=== PATIENT | male | born 1990 | race Two or more races ===

== ENCOUNTER 2018-12-16 18:09 | Emergency (ER) ==
[~2018-12-16] VITALS: Ht 165.1 cm; Wt 72.6 kg
--- NOTE | 2018-12-16 18:30 | NUR ---
patient came in the ER c/o flank pain, on room air, breathing evenly and unlabored. Connected to the monitor and pulse ox. kept comfortable, will continue to monitor accordingly.
--- NOTE | 2018-12-16 18:40 | NUR ---
urine collected and sent to lab
[2018-12-16] MEDS ORDERED: ONDANSETRON HCL/PF 4 MG/2 ML VIAL ONE (18:41)
[2018-12-16] MEDS ORDERED: MORPHINE SULFATE INJ 4 MG/ML DISP.SYRIN ONE (18:42)
[2018-12-16 18:43] LABS: BASOPHILS # (AUTO) 0.1 /CMM (0.0-0.2); BASOPHILS % (AUTO) 0.7 % (0.0-2.0); EOSINOPHILS % (AUTO) 0.8 % (0.0-6.0); HEMATOCRIT 46 % (39-51); HEMOGLOBIN 15.9 g/dL (13.5-17.5); LYMPHOCYTES # (AUTO) 3.2 /CMM (0.8-4.8); LYMPHOCYTES % (AUTO) 30.7 % (20.0-44.0); MEAN CORPUSCULAR HGB CONC 35 g/dl (31.0-36.0); MEAN CORPUSCULAR VOLUME 89 fL (80-96); MONOCYTES # (AUTO) 0.8 /CMM (0.1-1.30); MONOCYTES % (AUTO) 7.8 % (2.0-12.0); NEUTROPHILS # (AUTO) 6.3 /CMM (1.8-8.9); PLATELET COUNT (AUTO) 284 /CMM (150-450); RED BLOOD CELL COUNT(AUTO) 5.19 MIL/uL (4.5-6.0); WHITE BLOOD COUNT (AUTO) 10.6 K/uL (4.3-11.0)
[2018-12-16 18:45] LABS: APPEARANCE,URINE Clear (CLEAR); BILIRUBIN,URINE Negative (NEGATIVE); BLOOD, URINE Trace-intact Ery/uL (NEGATIVE); COLOR,URINE Yellow (YELLOW); KETONES,URINE Negative (NEGATIVE); LEUKOCYTE ESTERASE ,URINE Trace (NEGATIVE); NITRITE, URINE Negative (NEGATIVE); PH,URINE 7.5 (5.0-8.0); PROTEIN,URINE Negative (NEGATIVE); UGLUCOSE Negative (NEGATIVE); UROBILINOGEN,URINE 0.2 EU/dL (0.2)
[2018-12-16 18:52] LABS: BACTERIA,URINE None seen /HPF (None Seen); RBC,URINE 0-2 /HPF (0-2); SQUAMOUS EPITHELIAL CELL,UR None Seen /HPF (None Seen); WBC,URINE NONE SEEN /HPF (0-3)
[2018-12-16 18:56] LABS: ALBUMIN 3.7 g/dL (3.4-5.0); BILIRUBIN,TOTAL 0.4 mg/dL (0.2-1.0); CALCIUM, SERUM 8.8 mg/dL (8.5-10.1); TOTAL PROTEIN, SERUM 7.1 g/dL (6.4-8.2)
[2018-12-16 18:57] LABS: POTASSIUM 2.5 mmol/L (3.5-5.1)
[2018-12-16] MEDS ORDERED: MORPHINE SULFATE INJ 2 MG/ML DISP.SYRIN IV ONE (19:00)
[2018-12-16] MEDS ORDERED: IV NS 0.9% 1,000 ML BAG IV ONE (19:00)
[2018-12-16] MEDS ORDERED: ONDANSETRON HCL/PF 4 MG/2 ML VIAL IVP ONE (19:00)
--- NOTE | 2018-12-16 19:15 | NUR ---
endorsed to Annie NASH for azam.
[2018-12-16] MEDS ORDERED: POTASSIUM CHLORIDE 20 MEQ TAB.PRT.SR PO ONE ×4 (19:30→20:19)
[2018-12-16] MEDS ORDERED: Magnesium 1GM/D5W 100ML PREMIX 200 ML IV ONE (20:18)
[2018-12-16] MEDS ORDERED: Magnesium 1 GM/2 ML VIAL IV ONE (20:30)
--- NOTE | 2018-12-16 21:15 | NUR ---
Patient discharged to home in stable condition. Written and verbal after care instructions given. Patient verbalizes understanding of instruction. IV removed. Catheter intact and site benign. Pressure and 4x4 applied to site. No bleeding noted. Pt ambulatory with a steady gait
[2018-12-16 21:16] VITALS: BP 127/88
== END 2018-12-16 21:17 | disposition home or self-care (01) ==
LOC: EDBD 18:16 → ER 18:16
DX: R10.9 Unspecified abdominal pain (principal); Z87.442 Personal history of urinary calculi
CPT/HCPCS: 36415; 74176; 80048; 80076; 81001; 83690; 83735; 85025; 87086; 93005; 96365; 96366; 96375; 99284; J2270; J2405; J3475; J7030; 81000-TC

== ENCOUNTER 2019-07-09 18:47 | Emergency (ER) | payer MEDICAID ==
[~2019-07-09] VITALS: Ht 162.6 cm; Wt 72.6 kg
--- NOTE | 2019-07-09 20:11 | NUR ---
PATIENT CAME TO ER W/ RELATIVE C/O ABDOMINAL PAIN AND A HEADACHE. PATIENT STATES THAT HE HAD VOMITED TODAY AFTER EATING AND CURRENTLY FEELS NAUSEOUS. PATIENT HAS A FEVER 100.7, NOTIFIED. AAOX4. NO SOB. BREATHING EVENLY AND UNLABORED. CONNECTED TO MONITOR.
--- NOTE | 2019-07-09 20:17 | NUR ---
EGG BUYER AT BEDSIDE
[2019-07-09] MEDS ORDERED: ONDANSETRON HCL/PF 4 MG/2 ML VIAL ONE (20:18)
[2019-07-09] MEDS ORDERED: ACETAMINOPHEN ES 500 MG TABLET ONE (20:18)
[2019-07-09 20:19] LABS: BASOPHILS % (AUTO) 0.4 % (0.0-2.0); EOSINOPHILS % (AUTO) 0.3 % (0.0-6.0); HEMATOCRIT 47 % (39-51); LYMPHOCYTES # (AUTO) 2.1 /CMM (0.8-4.8); LYMPHOCYTES % (AUTO) 23.4 % (20.0-44.0); MEAN CORPUSCULAR HGB CONC 34 g/dl (31.0-36.0); MEAN CORPUSCULAR VOLUME 88 fL (80-96); MONOCYTES # (AUTO) 1.2 /CMM (0.1-1.30); MONOCYTES % (AUTO) 13.4 % (2.0-12.0); NEUTROPHILS # (AUTO) 5.6 /CMM (1.8-8.9); NEUTROPHILS % (AUTO) 62.5 % (43.0-81.0); PLATELET COUNT (AUTO) 252 /CMM (150-450); RED BLOOD CELL COUNT(AUTO) 5.31 MIL/uL (4.5-6.0); WHITE BLOOD COUNT (AUTO) 8.9 K/uL (4.3-11.0)
[2019-07-09] MEDS ORDERED: ONDANSETRON HCL/PF 4 MG/2 ML VIAL IVP ONE (20:30)
[2019-07-09] MEDS ORDERED: IV NS 0.9% 1,000 ML BAG IV ONE ×2 (20:30→21:00)
[2019-07-09] MEDS ORDERED: ACETAMINOPHEN ES 500 MG TABLET PO ONE (20:30)
[2019-07-09 20:34] LABS: APPEARANCE,URINE Clear (CLEAR); BILIRUBIN,URINE Negative (NEGATIVE); BLOOD, URINE Trace-intact Ery/uL (NEGATIVE); COLOR,URINE Yellow (YELLOW); KETONES,URINE Negative (NEGATIVE); LEUKOCYTE ESTERASE ,URINE Negative (NEGATIVE); NITRITE, URINE Negative (NEGATIVE); PROTEIN,URINE Negative (NEGATIVE); UGLUCOSE Negative (NEGATIVE); UROBILINOGEN,URINE 0.2 EU/dL (0.2)
[2019-07-09 20:35] LABS: BILIRUBIN,DIRECT 0.1 mg/dL (0.0-0.2); BILIRUBIN,TOTAL 0.4 mg/dL (0.2-1.0); CALCIUM, SERUM 8.7 mg/dL (8.5-10.1); TOTAL PROTEIN, SERUM 7.9 g/dL (6.4-8.2)
[2019-07-09 20:36] LABS: POTASSIUM 2.5 mmol/L (3.5-5.1)
[2019-07-09 20:37] LABS: BACTERIA,URINE Rare /HPF (None Seen); SQUAMOUS EPITHELIAL CELL,UR Few /HPF (None Seen); WBC,URINE NONE SEEN /HPF (0-3)
[2019-07-09] MEDS ORDERED: POTASSIUM CL. PREMIX PERIPHER. 50 ML IV STA ×2 (20:38→22:27)
[2019-07-09] MEDS ORDERED: POTASSIUM CHLORIDE 20 MEQ TAB.PRT.SR PO ONE ×2 (20:52→21:00)
[2019-07-09] MEDS ORDERED: POTASSIUM CL. PREMIX PERIPHER. 50 ML ONE ×2 (20:52→22:27)
[2019-07-09] MEDS ORDERED: Magnesium 1GM/D5W 100ML PREMIX 100 ML IV STA (21:08)
[2019-07-09] MEDS ORDERED: Magnesium 1GM/D5W 100ML PREMIX 100 ML IV ONE (21:18)
--- NOTE | 2019-07-09 21:43 | NUR ---
PATIENT'S ORAL TEMPERATURE AT 98.9
--- NOTE | 2019-07-09 22:28 | NUR ---
VERBAL ORDER TO GIVE 10MEQ/50ML OF POTASSIUM CHLORIDE BY MARIELENA ENAMORADO RECEIVED, WILL CARRY OUT ORDER
--- NOTE | 2019-07-09 23:18 | NUR ---
PATIENT IS RESTING COMFORTABLY IN BED 10. RELATIVE AT BEDSIDE. PATIENT IS RESPONSIVE TO TACTILE AND VERBAL STIMULI. CONNECTED TO MONITOR.
--- NOTE | 2019-07-09 23:29 | NUR ---
MARIELENA ORTEGA AT BEDSIDE FOR RE-EVAL
--- NOTE | 2019-07-09 23:33 | NUR ---
ORAL TEMPERATURE AT 98.5
--- NOTE | 2019-07-10 00:13 | NUR ---
IV removed. Catheter intact and site benign. Pressure and 4x4 applied to site. No bleeding noted. Patient discharged to home in stable condition. Written and verbal after care instructions given. Patient verbalizes understanding of instruction.
[2019-07-10 00:16] VITALS: BP 135/87
== END 2019-07-10 00:17 | disposition home or self-care (01) ==
LOC: ER 18:49
DX: E87.6 Hypokalemia (principal); E83.42 Hypomagnesemia; B34.9 Viral infection, unspecified; R11.10 Vomiting, unspecified
CPT/HCPCS: 36415; 71045; 80048; 80076; 81001; 83690; 83735; 85025; 87804 ×2; 93005; 96361; 96365; 96366; 96368; 96375; 99284; J2405; J3475; J3480 ×2; J7030 ×2; 81000-TC